=== PATIENT | male | born 1970 | race Caucasian/White ===

== ENCOUNTER 2017-08-19 18:33 | Inpatient (IN) | payer MEDICAID, OTHER, SELFPAY ==
[2017-08-19 19:02] LABS: HEMATOCRIT 41.3 % (42.0-52.0); HEMOGLOBIN 14.7 g/dl (13.5-17.5); MEAN CORPUSCULAR HEMOGLOBIN 31.6 pg (27.0-33.0); MEAN CORPUSCULAR HGB CONC 35.6 g/dl (32.0-36.5); MEAN CORPUSCULAR VOLUME 88.8 fl (80.0-96.0); PLATELET COUNT, AUTOMATED 233 10^3/uL (150-450); RED BLOOD COUNT 4.65 10^6/uL (4.30-6.10); WHITE BLOOD COUNT 12.8 10^3/uL (4.0-10.0)
[2017-08-19 19:20] LABS: AMPHETAMINES LEVEL URINE NEGATIVE (NEGATIVE); BARBITURATES URINE NEGATIVE (NEGATIVE); BENZODIAZEPINES URINE NEGATIVE (NEGATIVE); CANNABINOIDS URINE NEGATIVE (NEGATIVE); COCAINE METABOLITE URINE NEGATIVE (NEGATIVE); METHADONE URINE NEGATIVE (NEGATIVE); OPIATES URINE NEGATIVE (NEGATIVE); PHENCYCLIDINE URINE NEGATIVE (NEGATIVE)
[2017-08-19 19:31] LABS: ALBUMIN 4.1 GM/DL (3.2-5.2); ALBUMIN/GLOBULIN RATIO 1.24 (1.00-1.93); ALKALINE PHOSPHATASE 53 U/L (45-117); ALT/SGPT 29 U/L (12-78); ANION GAP 11 MEQ/L (8-16); AST/SGOT 16 U/L (7-37); BILIRUBIN,DIRECT < 0.1 MG/DL (0.0-0.2); BILIRUBIN,TOTAL 0.3 MG/DL (0.2-1.0); BLOOD UREA NITROGEN 9 MG/DL (7-18); CALCIUM LEVEL 8.3 MG/DL (8.5-10.1); CARBON DIOXIDE LEVEL 23 MEQ/L (21-32); CHLORIDE LEVEL 106 MEQ/L (98-107); CREATININE FOR GFR 0.88 MG/DL (0.70-1.30); ETHYL ALCOHOL (ETHANOL) 0.266 % (0.000-0.010); GLOMERULAR FILTRATION RATE > 60.0 (>60); GLUCOSE, FASTING 86 MG/DL (70-100); POTASSIUM SERUM 3.6 MEQ/L (3.5-5.1); SALICYLATE LEVEL 3.8 MG/DL (5.0-30.0); SODIUM LEVEL 140 MEQ/L (136-145); TOTAL PROTEIN 7.4 GM/DL (6.4-8.2)
[2017-08-19 19:39] LABS: ACETAMINOPHEN LEVEL < 2.0 UG/ML (10.0-30.0)
[2017-08-19] MEDS: CEPACOL LOZENGE MT (23:22)
[2017-08-20] MEDS ORDERED: traZODone 50 MG TAB PO (05:30)
[2017-08-20] MEDS ORDERED: MOM 30ML SUSPENSION UDC PO (05:30)
[2017-08-20] MEDS ORDERED: ACETAMINOPHEN TAB 650MG DOSE (2X325MG) PO (05:30)
[2017-08-20] MEDS ORDERED: MAALOX 30 ML SUSP *UDC PO (05:30)
[2017-08-20] MEDS: NICOTINE 21MG/24HR 1 EA TRANSDERMAL TD (09:00)
[2017-08-21 07:43] LABS: HEMATOCRIT 42.1 % (42.0-52.0); HEMOGLOBIN 14.5 g/dl (13.5-17.5); MEAN CORPUSCULAR HEMOGLOBIN 31.2 pg (27.0-33.0); MEAN CORPUSCULAR HGB CONC 34.4 g/dl (32.0-36.5); MEAN CORPUSCULAR VOLUME 90.5 fl (80.0-96.0); PLATELET COUNT, AUTOMATED 210 10^3/uL (150-450); RED BLOOD COUNT 4.65 10^6/uL (4.30-6.10); WHITE BLOOD COUNT 8.5 10^3/uL (4.0-10.0)
[2017-08-21] MEDS: NICOTINE 21MG/24HR 1 EA TRANSDERMAL TD (09:00)
[2017-08-21] MEDS: CEPACOL LOZENGE PO (15:56)
[2017-08-21] MEDS: MULTIVITAMINS/MINERALS THERAP 1 TAB PO (15:57)
[2017-08-21] MEDS: THIAMINE 100 MG TAB PO (15:57)
[2017-08-21] MEDS: FOLIC ACID 1 MG TAB PO (15:57)
[2017-08-22] MEDS: MULTIVITAMINS/MINERALS THERAP 1 TAB PO (09:00)
[2017-08-22] MEDS: NICOTINE 21MG/24HR 1 EA TRANSDERMAL TD (09:00)
[2017-08-22] MEDS: THIAMINE 100 MG TAB PO (09:00)
[2017-08-22] MEDS: FOLIC ACID 1 MG TAB PO (09:34)
== END 2017-08-22 13:25 | disposition home or self-care (01) | DRG 754 ==
LOC: M ED 18:33 → M ED INP 08-20 05:23 → M PSY 08-20 08:45
DX: F32.9 Major depressive disorder, single episode, unspecified (principal); D72.829 Elevated white blood cell count, unspecified; F19.94 Other psychoactive substance use, unspecified with psychoactive substance-induced mood disorder; F10.10 Alcohol abuse, uncomplicated; F17.200 Nicotine dependence, unspecified, uncomplicated

== ENCOUNTER 2018-09-01 22:27 | Emergency (ER) | payer MEDICAID, SELFPAY ==
[~2018-09-01] VITALS: Ht 175.3 cm; Wt 87.0 kg
[~2018-09-01 22:27] MED LIST: CLOBETASOL TOP; FOLI1TAB11 PO; NICO21PAT TD; THIA100TA PO; VITMTA PO; [UNRECOGNIZED DRUG - REMARK]
[2018-09-01] MEDS ORDERED: TETANUS/DIPHTHERIA TOX ADSORB ADULT 0.5ML SYR/VIAL (90714) IM ONE (23:00)
[2018-09-01] MEDS ORDERED: LIDOCAINE W/EPINEPHRINE 1% 20ML VIAL SC ONE (23:00)
[2018-09-01] MEDS ORDERED: AUGM500T34 PO (23:25)
[2018-09-02] MEDS ORDERED: AUGMENTIN 875 MG TAB PO ONE (00:15)
[2018-09-02] MEDS ORDERED: AUGM500T34 PO (00:35)
[2018-09-02 00:48] VITALS: BP 142/88
--- NOTE | 2018-09-02 04:05 | REP ---
Clinical: Foreign body. Technique: AP, lateral views of the right tibia / fibula. Findings: Soft tissue laceration is appreciated with 8 mm subcutaneous foreign body consistent with glass fragment. Impression: Laceration with foreign body consistent with glass fragment Electronically Signed by Zen Nicholas MD 09/02/2018 03:57 A
== END 2018-09-02 00:51 | disposition home or self-care (01) ==
LOC: M ED 22:27
DX: S81.821A Laceration with foreign body, right lower leg, initial encounter (principal); W25.XXXA Contact with sharp glass, initial encounter; Y92.9 Unspecified place or not applicable; Y93.9 Activity, unspecified; Y99.9 Unspecified external cause status

== ENCOUNTER 2018-09-10 09:42 | Emergency (ER) | payer MEDICAID, SELFPAY ==
[~2018-09-10] VITALS: Ht 170.2 cm; Wt 92.9 kg
[2018-09-10 09:42] VITALS: BP 153/94
[~2018-09-10 09:42] MED LIST changes: +AUGM500T34 PO
[2018-09-10] MEDS ORDERED: BACT800T5 PO (09:58)
== END 2018-09-10 10:14 | disposition home or self-care (01) ==
LOC: M ED 09:42
DX: L08.9 Local infection of the skin and subcutaneous tissue, unspecified (principal); S81.811A Laceration without foreign body, right lower leg, initial encounter; Y92.89 Other specified places as the place of occurrence of the external cause; F17.200 Nicotine dependence, unspecified, uncomplicated

== ENCOUNTER 2018-09-15 12:32 | Emergency (ER) | payer SELFPAY ==
[~2018-09-15] VITALS: Ht 170.2 cm; Wt 93.7 kg
[~2018-09-15 12:32] MED LIST changes: +BACT800T5 PO
[2018-09-15 13:49] VITALS: BP 142/85
== END 2018-09-15 13:57 | disposition home or self-care (01) ==
LOC: M ED 12:32
DX: Z48.02 Encounter for removal of sutures (principal)

== ENCOUNTER 2021-11-22 15:05 | Emergency (ER) | payer OTHER, SELFPAY ==
[~2021-11-22] VITALS: Ht 170.2 cm; Wt 100.0 kg
[2021-11-22 15:24] VITALS: BP 134/77
[2021-11-22] MEDS ORDERED: ACETAMINOPHEN 500 MG TAB PO ONE (15:40)
== END 2021-11-22 17:57 | disposition home or self-care (01) ==
LOC: M ED 15:05
DX: S40.211A Abrasion of right shoulder, initial encounter (principal); S70.11XA Contusion of right thigh, initial encounter; S80.02XA Contusion of left knee, initial encounter; S20.219A Contusion of unspecified front wall of thorax, initial encounter; W22.8XXA Striking against or struck by other objects, initial encounter; Y99.0 Civilian activity done for income or pay; F17.200 Nicotine dependence, unspecified, uncomplicated; M25.762 Osteophyte, left knee; M25.861 Other specified joint disorders, right knee

== ENCOUNTER 2021-12-06 12:35 | Emergency (ER) | payer OTHER ==
[~2021-12-06] VITALS: Ht 170.2 cm; Wt 99.3 kg
[2021-12-06 16:43] VITALS: BP 147/84
== END 2021-12-06 16:48 | disposition home or self-care (01) ==
LOC: M ED 12:35
DX: S80.11XA Contusion of right lower leg, initial encounter (principal); W19.XXXA Unspecified fall, initial encounter; F19.10 Other psychoactive substance abuse, uncomplicated; F17.200 Nicotine dependence, unspecified, uncomplicated